=== PATIENT | female | born 1960 | race Caucasian/White ===

== ENCOUNTER 2018-02-08 19:09 | Inpatient (IN) | payer OTHER, MEDICAID ==
[~2018-02-08] VITALS: Ht 149.9 cm; Wt 58.5 kg
[2018-02-08 19:12] VITALS: BP_SYST 111
[2018-02-08] MEDS ORDERED: methylPREDNISolone SOD SUCC/PF 62.5 MG/ML VIAL IVP ONE (19:45)
[2018-02-08] MEDS ORDERED: IPRATROPIUM BROM 0.5 MG/2.5 ML VIAL.NEB (ATROVENT) IH ONE (19:45)
[2018-02-08] MEDS ORDERED: MAGNESIUM SULFATE 1 GM in NS 50 ML IV ONE (19:45)
[2018-02-08] MEDS ORDERED: ALBUTEROL SULFATE 0.083% 2.5 MG/3 ML VIAL.NEB IH ONE ×2 (19:45→21:15)
[2018-02-08] MEDS ORDERED: MAGNESIUM SULFATE 1 GM/2 ML VIAL ONE (20:00)
[2018-02-08 20:14] LABS: BASOPHILS % (AUTO) 0.8 % (0.0-2.0); EOSINOPHILS # (AUTO) 0.1 K/uL (0.0-0.4); EOSINOPHILS % (AUTO) 1.3 % (0.0-4.0); HEMATOCRIT 40.5 % (36-48); HEMOGLOBIN 13.8 g/dL (12.0-16.0); LYMPHOCYTES # (AUTO) 2.2 K/uL (1.0-5.5); LYMPHOCYTES % (AUTO) 39.6 % (20.5-51.5); MEAN CORPUSCULAR HEMOGLOBIN 34 pg (27-31); MEAN CORPUSCULAR HGB CONC 34 % (32-36); MEAN CORPUSCULAR VOLUME 99 fL (79.0-98.0); MONOCYTES # (AUTO) 0.4 K/uL (0.0-1.0); MONOCYTES % (AUTO) 7.6 % (1.7-9.3); NEUTROPHILS # (AUTO) 2.9 K/uL (1.8-7.7); NEUTROPHILS % (AUTO) 50.7 % (40.0-70.0); PLATELET COUNT (AUTO) 266 K/uL (130-430); RED BLOOD CELL COUNT(AUTO) 4.08 MIL/uL (4.2-6.2); RED CELL DISTRIBUTION WIDTH 13.1 % (9.0-15.0); WHITE BLOOD COUNT (AUTO) 5.6 K/uL (4.8-10.8)
[2018-02-08 20:26] LABS: CALCIUM 9.4 mg/dL (8.4-11.0); CREATININE 0.6 mg/dL (0.55-1.30); POTASSIUM 3.6 mmol/L (3.5-5.1)
[2018-02-08 20:35] LABS: ALBUMIN 3.8 g/dL (3.4-4.8); TOTAL BILIRUBIN 0.4 mg/dL (0.0-1.0)
[2018-02-08 20:43] LABS: INR 0.9 (0.8-1.2); PROTHROMBIN TIME 8.9 SECS (9.5-12.5)
[2018-02-08] MEDS ORDERED: AMLO5TAB4 PO (22:35)
[2018-02-08] MEDS ORDERED: BISA-79 PO (22:35)
[2018-02-08] MEDS ORDERED: CHOL500037 PO (22:35)
[2018-02-09] VITALS (7 sets, daily range): BP systolic 119–130
[2018-02-09] MEDS: IPRATROPIUM/ALBUTEROL SULFATE 3 ML AMPUL.NEB INH SCH ×7 (00:55→23:00)
[2018-02-09] MEDS ORDERED: methylPREDNISolone SOD SUCC 40 MG/ML VIAL IVP SCH (06:00)
[2018-02-09] MEDS: amLODIPine BESYLATE 5 MG TABLET PO SCH (08:30)
[2018-02-09] MEDS: AZITHROMYCIN 250 MG TABLET PO SCH (08:30)
[2018-02-09] MEDS ORDERED: BISACODYL 5 MG TABLET.DR (DULCOLAX) PO SCH (09:00)
[2018-02-09] MEDS: cefTRIAXone 1 GM in D5W 50 ML IV SCH (09:37)
[2018-02-09] MEDS ORDERED: amLODIPine BESYLATE 5 MG TABLET PO SCH (10:15)
[2018-02-09] MEDS ORDERED: PROMETHAZINE-DM 6.25 MG-15 MG/5 ML UDC PO PRN (10:15)
[2018-02-09] MEDS: methylPREDNISolone SOD SUCC 40 MG/ML VIAL IVP SCH ×2 (14:10→21:08)
[2018-02-09] MEDS: BISACODYL 5 MG TABLET.DR (DULCOLAX) PO SCH (21:08)
[2018-02-10 01:31] VITALS: BP_SYST 127
[2018-02-10] MEDS: methylPREDNISolone SOD SUCC 40 MG/ML VIAL IVP SCH (05:21)
[2018-02-10] MEDS: IPRATROPIUM/ALBUTEROL SULFATE 3 ML AMPUL.NEB INH SCH ×6 (05:49→23:15)
[2018-02-10 08:35] VITALS: BP_SYST 124
[2018-02-10] MEDS: AZITHROMYCIN 250 MG TABLET PO SCH (09:40)
[2018-02-10] MEDS: BISACODYL 5 MG TABLET.DR (DULCOLAX) PO SCH ×2 (09:41→20:03)
[2018-02-10] MEDS: amLODIPine BESYLATE 5 MG TABLET PO SCH (09:41)
[2018-02-10] MEDS: cefTRIAXone 1 GM in D5W 50 ML IV SCH (09:42)
[2018-02-10 12:56] VITALS: BP_SYST 118
[2018-02-10 16:42] VITALS: BP_SYST 132
[2018-02-10 19:10] VITALS: BP_SYST 107
[2018-02-10] MEDS: PREDNISONE 20 MG TABLET PO SCH (20:03)
[2018-02-10 23:55] VITALS: BP_SYST 111
[2018-02-11] MEDS: IPRATROPIUM/ALBUTEROL SULFATE 3 ML AMPUL.NEB INH SCH ×3 (03:16→11:10)
[2018-02-11 08:20] VITALS: BP_SYST 107
[2018-02-11] MEDS: AZITHROMYCIN 250 MG TABLET PO SCH (08:47)
[2018-02-11] MEDS: PREDNISONE 20 MG TABLET PO SCH (08:47)
[2018-02-11] MEDS: cefTRIAXone 1 GM in D5W 50 ML IV SCH (08:47)
[2018-02-11] MEDS: BISACODYL 5 MG TABLET.DR (DULCOLAX) PO SCH (08:47)
[2018-02-11] MEDS: amLODIPine BESYLATE 5 MG TABLET PO SCH (08:47)
[2018-02-11 12:03] VITALS: BP_SYST 120
[2018-02-11 13:05] VITALS: BP_SYST 124
[2018-02-11] MEDS ORDERED: IPRA4AER INH (15:06)
[2018-02-11] MEDS ORDERED: METH4TAB3 PO (15:07)
[2018-02-11] MEDS ORDERED: CEPH-568 PO (15:08)
== END 2018-02-11 16:00 | disposition home or self-care (01) | DRG 189 ==
LOC: SED 19:09 → STU 22:56
PROVIDERS: ADMIT Internal Medicine; ATTEND Internal Medicine
DX: J96.00 Acute respiratory failure, unspecified whether with hypoxia or hypercapnia (principal); E87.1 Hypo-osmolality and hyponatremia; J44.1 Chronic obstructive pulmonary disease with (acute) exacerbation; J44.0 Chronic obstructive pulmonary disease with (acute) lower respiratory infection; I10 Essential (primary) hypertension; R07.89 Other chest pain; F17.200 Nicotine dependence, unspecified, uncomplicated; J20.9 Acute bronchitis, unspecified; F17.210 Nicotine dependence, cigarettes, uncomplicated; Z79.899 Other long term (current) drug therapy
CPT/HCPCS: 36415; 71045; 80053; 82550-TC; 83880; 84484; 85025; 85610-TC; 85730-TC; 93005; 94640; 94760; 96365; 96375; 99285; J0696; J1030; J2930; J3475; J7060; J7512; J7613; J7620; Q0144